=== PATIENT | female | born 1965 | race Caucasian/White ===

== ENCOUNTER 2019-07-23 17:48 | Emergency (ER) | payer SELFPAY ==
[2019-07-23 18:06] VITALS: TEMP 98.6; BMI 27.3
--- NOTE | 2019-07-23 18:35 | PDOC ---
History of Present Illness - General Chief Complaint: Lightheaded Stated Complaint: DIZZINESS Time Seen by Provider: 07/23/19 18:34 - History of Present Illness Initial Comments: 07/23/19 18:49 54 yo F PMH low back pain on cyclobenzaprine PRN, presenting with dizziness. Reports "room spinning sensation" starting around 0400 yesterday, associated with nausea without vomiting, triggered with head movement and lasting seconds at a time. Did have associated intermittent tingling in her hands. Stayed in bed yesterday and felt better; however, she had two more episodes today while driving, prompting her to come to the ED. Currently, patient feels at her baseline. Complains only of dried lips and feeling like she needs more fluids. No current nausea or dizziness. No recent illness. Past History - Past Medical History Allergies/Adverse Reactions: Allergies Allergy/AdvReac Type Severity Reaction Status Date / Time amoxicillin [From Augmentin] Allergy Verified 07/23/19 18:06 clavulanic acid Allergy Verified 07/23/19 18:06 [From Augmentin] diphenhydramine Allergy Verified 07/23/19 18:06 [From Benadryl] doxycycline Allergy Verified 07/23/19 18:06 Home Medications: Ambulatory Orders NK [No Known Home Medication] 07/23/19 COPD: No - Psycho Social/Smoking Cessation Hx Smoking History: Never smoked Have you smoked in the past 12 months: No Information on smoking cessation initiated: No Hx Alcohol Use: No Drug/Substance Use Hx: No *Physical Exam - Vital Signs Last Vital Signs Temp Pulse Resp BP Pulse Ox 98.6 F 91 H 18 142/92 97 07/23/19 18:03 07/23/19 18:03 07/23/19 18:03 07/23/19 18:03 07/23/19 18:03 ED Treatment Course - LABORATORY CBC & Chemistry Diagram: 07/23/19 19:00 07/23/19 19:00 Medical Decision Making - Medical Decision Making 07/23/19 18:52 Concern for potential BPPV. Low suspicion for stroke, TIA, or ICH considering positional nature of symptoms and short duration of episodes. - CBC, CMP - EKG, trop - meclizine - 1L LR - reassess 07/23/19 19:17 Patient states that Benadryl has "made her lips feel heavy in the past", and currently feels well, so she does not want meclizine at this time. 07/23/19 20:28 CT head with no acute pathology. Will dc for further outpatient management. Discharge - Discharge Information Problems reviewed: Yes Clinical Impression/Diagnosis: Vertigo - Follow up/Referral Referrals: ON STAFF,NOT [Primary Care Provider] - - Patient Discharge Instructions Patient Printed Discharge Instructions: DI for Benign Paroxysmal Positional Vertigo Additional Instructions: You were seen with dizziness that had been triggered by head movements. Your labs and imaging were unremarkable. This is likely to be vertigo. You were offered a medication called meclizine, but refused due to concerns about a possible lip tingling reaction. Please follow up with your primary care doctor within one week for further management. Return to the ED if you develop worsening symptoms. - Post Discharge Activity
[2019-07-23] MEDS ORDERED: LACTATED RINGERS SOLUTION 1,000 ML/1,000 ML INFUS.BAG IV STA (18:49)
[2019-07-23 19:09] LABS: BASO % 0.9 % (0-2.0); EOS % 2.1 % (0-4.5); HEMATOCRIT 35.1 % (32.4-45.2); MCH 31.4 pg (25.7-33.7); MCHC 34.3 g/dl (32.0-36.0); MEAN CELL VOLUME 91.3 fl (80-96); MEAN PLT VOLUME 9.2 fl (7.5-11.1); PLATELET COUNT 159 K/MM3 (134-434); RBC 3.84 M/mm3 (3.60-5.2); RDW 13.5 % (11.6-15.6); WHITE BLOOD COUNT 6.3 K/mm3 (4.0-10.0)
--- NOTE | 2019-07-23 19:43 | PDOC ---
Attending Attestation - Resident Resident Name: Kamala Clark - ED Attending Attestation I have performed the following: I have examined & evaluated the patient, The case was reviewed & discussed with the resident, I agree w/resident's findings & plan - HPI HPI: 07/23/19 20:28 see resident hpi - Physicial Exam PE: 07/23/19 20:28 see resident exam - Medical Decision Making 07/23/19 20:28 54-year-old female with intermittent room spinning, now resolved CT scan shows no acute abnormality Patient is completely asymptomatic with normal gait in the emergency department She refused antivertigo med Patient had a neurologist for chronic headaches in [place] but states she has not been there in a year She will follow-up with neurology through our system She states she feels well and would like to go home Based on clinical presentation and complete resolution of symptoms central cause unlikely Patient was advised that should symptoms return or worsen to return immediately to the emergency department as these can be indicative of a more significant illness, she has agreed with the plan
[2019-07-23 19:46] LABS: ALBUMIN 3.5 g/dl (3.4-5.0); ALK PHOS 66 U/L (45-117); ANION GAP 5 MMOL/L (8-16); BILIRUBIN,TOTAL 0.4 mg/dL (0.2-1); BLOOD UREA NITROGEN 10.4 mg/dL (7-18); CALCIUM 8.3 mg/dL (8.5-10.1); CHLORIDE 108 mmol/L (98-107); CO2 25 mmol/L (21-32); GLUCOSE,RANDOM 84 mg/dL (74-106); PHOSPHOROUS 2.8 mg/dL (2.5-4.9); POTASSIUM 4.3 mmol/L (3.5-5.1); SGOT/AST 17 U/L (15-37); SGPT/ALT 17 U/L (13-61); SODIUM 138 mmol/L (136-145); TOT PROT 6.6 g/dl (6.4-8.2)
[2019-07-23 21:44] VITALS: BP 135/85; PULSE 86
--- NOTE | 2019-07-24 15:16 | EKG ---
Test Reason : Blood Pressure : / mmHG Vent. Rate : 081 BPM Atrial Rate : 081 BPM P-R Int : 142 ms QRS Dur : 084 ms QT Int : 362 ms P-R-T Axes : 060 061 029 degrees QTc Int : 420 ms NORMAL SINUS RHYTHM NORMAL ECG NO PREVIOUS ECGS AVAILABLE Confirmed by CHRISTOPHER SHERIDAN MD ([id number]) on 07/24/2019 3:15:40 PM Referred By: Confirmed By:CHRISTOPHER SHERIDAN MD
== END 2019-07-23 21:44 | disposition home or self-care (01) ==
LOC: JER 17:48
PROC: 3E0337Z Introduction of Electrolytic and Water Balance Substance into Peripheral Vein, Percutaneous Approach (ICD-10-PCS; principal; 2019-07-23)
DX: R42 Dizziness and giddiness (principal); Z88.8 Allergy status to other drugs, medicaments and biological substances
CPT/HCPCS: 36415; 70450-TC; 80053; 82550; 83735; 84100; 84484; 85025; 93005; 93010; 99285-25